=== PATIENT | female | born 1960 | race Caucasian/White ===

== ENCOUNTER 2017-09-30 22:45 | Emergency (ER) | payer BC ==
--- OUTSIDE RECORDS SUMMARY | 2017-09-30 22:59 | XMS REPORT ---
:1960 External Reference #:[id number] Author Organization [facility] Address [address] [place] [address] Phone [phone] Care Team Providers Name Role Phone Gurdeep Morrison Care Team Information Ammonium Hydroxide Operator Unavailable Gurdeep Morrison Primary Care Physician Unavailable Payers Type Date Identification Numbers Payment Provider Subscriber Health Maintenance Effective: Policy Number: Essential Plan Pro [employer]ino [employer] (O) 10/17/2016 [id number] [employer] Name: Essential [employer] 1 [address] [address] PayID: [id number] [place] [address] Problems Date Description Provider Status Onset: 12/24/2008 Allergic rhinitis Gurdeep Morrison M.D. Active Onset: 12/24/2008 Asthma without status asthmaticus Gurdeep Morrison M.D. Active Onset: 10/08/2011 Benign essential hypertension Gurdeep Morrison M.D. Active Onset: 10/08/2011 Hyperlipidemia Gurdeep Morrison M.D. Active Onset: 10/08/2011 Psoriasis Gurdeep Morrison M.D. Active Onset: 10/08/2011 Gastroesophageal reflux disease Gurdeep Morrison M.D. Active Onset: 10/08/2011 Cardiovascular symptoms Gurdeep Morrison M.D. Active Onset: 04/24/2012 Alopecia Becca Anthony M.D. Active Onset: 08/05/2012 Acute maxillary sinusitis Vasquez Keller M.D. Active Onset: 07/05/2014 Acute upper respiratory infection Gurdeep Morrison M.D. Active Onset: 07/05/2014 Acute bronchitis Gurdeep Morrison M.D. Active Onset: 09/14/2014 Contusion of chest Gurdeep Morrison M.D. Active Onset: 06/20/2015 Localized, primary osteoarthritis Gurdeep Morrison M.D. Active of the pelvic region and thigh Onset: 06/20/2015 Localized, primary osteoarthritis Gurdeep Morrison M.D. Active Onset: 10/25/2015 Epigastric pain Gurdeep Morrison M.D. Active Onset: 02/17/2016 Generalized anxiety disorder Gurdeep Morrison M.D. Active Onset: 04/10/2016 Mild intermittent asthma, Gurdeep Morrison M.D. Active uncomplicated Onset: 04/10/2016 Uterovaginal prolapse Gurdeep Morrison M.D. Active Onset: 05/04/2016 Eruption Gurdeep Morrison M.D. Active Family History Date Family Member(s) Problem(s) Comments Father Prostate Cancer Mother Arteriosclerosis Mother Hypertension Mother Hyperlipidemia First Brother Hypertension Second Brother Hypertension Social History Type Date Description Comments Cigarette Use Nonsmoker ETOH Use Denies alcohol use Smoking Patient is a former smoker Allergies, Adverse Reactions, Alerts Date Description Reaction Status Severity Comments 12/06/2006 Cipro active Headache 02/18/2008 Zithromax active Caused Kidney Pain 06/28/2011 Advair Diskus bronchial spasms active 12/23/2015 Seasonal active Medications Medication Date Status Form Strength Qnty SIG Indications Ordering Provider Tamiflu 09/07/ Active Capsules 75mg 10caps 1 by R50.9 Steffany romero Marylou, twice a KEEPER HELPER day Omeprazole 06/17/ Active Capsules 40mg 30caps 1 by Reilly Lebron every day Kym Meclizine HCL 03/22/ Active Tablets 12.5mg 30tabs 1 by H81.313 Dolly 2016 mouth 1 Ryan, 8h during KEE[employer] HELPER the day and 2-4po every night at bedtime Proair HFA 01/11/ Active Aerosol 108(90Base 17gm 2 puffs J30.2 Dolly 2016 ) mcg/Act every 4 Ryan, hours as KEEPER HELPER needed Citalopram 03/01/ Active Tablets 40mg 30tabs Take One F41.1 Vasquez Jimenez Hydrobromide 2016 Tablet By Lavern Keller M.D. Once Daily Montelukast 02/20/ Active Tablets 10mg 30tabs Take One J45.998 Gurdeep T. Sodium 2016 Tablet By Midura, Mouth M.D. Every Night At Bedtime as Needed J30.2 Clonazepam 02/17/2016 Active Tablets 0.5mg 30tabs 1 by mouth Gurdeep T. twice a day Midura, as needed M.D. for anxiety Ranitidine HCL 01/19/2016 Active Tablets 150mg 60tabs Take One K2 Gurdeep T. Tablet By 1. Midura, Mouth Twice 9 M.D. Daily For Stomach Clobetasol 07/14/2013 Active Cream 0.05% 60gm apply Gurdeep T. Propionate E sparingly Midura, to affected M.D. areas bid Ibuprofen Active Capsules 200mg prn Unknown Zyrtec Allergy Active Tablets 10mg 1 po qd Unknown Aspir-[address] 81mg 100tabs 1 po qd Unknown Saline Nasal Active Solution 0.65% 1 spray Unknown [place] each nostril twice a day as needed Multivitamins Active Capsules 1 by mouth Unknown every day Fish Oil Active Capsules 1 by mouth Unknown every day Nasonex 01/11/2017 - Hx Suspension 50mcg/A 17gm 2 J3 Dolly 04/05/2017 ct sprays/nost 0. Ryan, ril/d 2 [employer] HELPER Prednisone 01/11/2017 - Hx Tablets 10mg 30tabs 2 twice a J3 Dolly 03/22/2017 day x 3 0. Ryan, days then 2 2 KEE[employer] HELPER in the morning, 1 at night x 3 days then 1 twice a day x 3 days then 1 every day x 3 Nitrofurantoin 07/09/2016 - Hx Capsules 100mg 20caps 1 by mouth Gurdeep T. Monohyd Macro 03/22/2017 twice a day Midura, x 7 days M.D. Citalopram 02/15/2016 - Hx Tablets 10mg 60tabs 1-2 by F4 Gurdeep T. Hydrobromide 03/01/2016 mouth every 1. Midura, day 1 M.D. Sulfamethoxazole/ 01/20/2016 - Hx Tablets 800-160 20tabs 1 by mouth N3 Dolly Trimethoprim DS 02/17/2016 mg twice a day 9. Ryan, x 10d 0 [employer]EEPER HELPER Amoxicillin 12/23/2015 - Hx Tablets 875mg 20tabs 1 by mouth J2 Roula 01/02/2016 twice a day 0. Diaz, SPONGE FISHERMAN x 10 days 9 Omeprazole 10/25/2015 - Hx Capsules DR 40mg 30caps 1 by mouth R1 Gurdeep Valadez 02/17/2016 every in 0. [facility], the morning 13 M.D. for stomach Bactrim DS 02/01/2015 - Hx Tablets 800-160 10tabs 1 tab by 59 Anabella 06/20/2015 mg mouth twice 9. [place], a day 5 0 M.D. days Pyridium 02/01/2015 - Hx Tablets 100mg 20tabs 1 tab by 59 Anabella 06/20/2015 mouth every 9. [place], 6 hours as 0 M.D. needed Sulfamethoxazole/ 01/03/2015 - Hx Tablets 800-160 10tabs one tablet 59 Roula Trimethoprim DS 01/08/2015 mg twice a day 9. Diaz [employer]ER[employer] x 5 days 0 Amoxicillin/Clavu 09/18/2014 - Hx Tablets 875-125 20tabs 1 by mouth 46 Roula lanate Potassium 09/28/2014 mg twice a day 1. Diaz [employer]ER[employer] x 10 days 0 Amoxicillin/Clavu 07/05/2014 - Hx Tablets 875-125 20tabs 1 twice a 46 Gurdeep T. lanate Potassium 09/14/2014 mg day w/ 5. Midura, food. 9 M.D. Bactrim DS 05/24/2014 - Hx Tablets 800-160 6tabs 1 tab by Anabella 06/15/2014 mg mouth twice [place], a day 3 M.D. days Macrobid 05/18/2014 - Hx Capsules 100mg 10caps 1 tab by 78 Anabella 06/15/2014 mouth twice 8. [place], a day x 5 1 M.D. days Medrol Dosepak 01/19/2013 - Hx Tablets 4mg 1tabs as directed 49 Gurdeep Valadez 07/14/2013 3. Midura, 90 M.D. Sulfamethoxazole/ 12/16/2012 - Hx Tablets 800-160 10tabs 1 po bid x 59 Jonelle Trimethoprim DS 12/22/2012 mg 5 days 9. Catarina, 0 Afnp-Quinn Augmentin 08/05/2012 - Hx Tablets 500-125 20tabs 1 po bid Vasquez Jimenez 12/16/2012 mg With Yashira Keller M.D. Clobetasol 04/24/2012 - Hx Foam 0.05% 1bottle apply to Becca FarfanSage Propionate 07/14/2013 affected Gabrielle area twice , M.D. daily for up to 2 weeks Sulfamethoxazole/ 02/19/2012 - Hx Tablets 800-160 6tabs 1 po bid x 59 Jonelle Trimethoprim DS 04/24/2012 mg 3 days 9. Catarina, 0 Afnp-C Augmentin 12/11/2011 - Hx Tablets 500-125 20tabs 1 po bid Gurdeep T. 02/19/2012 mg Kym Morrison Singulair 12/07/2011 - Hx Tablets 10mg 30tabs 1 by mouth 49 Gurdeep T. 02/21/2016 every night 3. Midura, at bedtime 90 M.D. as needed Fluocinonide 10/08/2011 - Hx Solution 0.05% 60cc apply to Gurdeep TSage 04/24/2012 affected Midura, areas of M.D. the scalp qd prn Ranitidine HCL 10/08/2011 - Hx Tablets 150mg 60tabs take one K2 Roula 12/23/2015 tablet by 1. VICKEY Perales mouth twice 9 daily for stomach Amoxicillin 06/28/2011 - Hx Capsules 500mg 20caps 1 po bid x 49 Dolly 10/08/2011 10d 3. Ryan, 90 KEEPER HELPER SMZ-TMP DS 01/23/2011 - Hx Tablets 800-160 20tabs 1 bid Gurdeep T. 02/02/2011 mg Consuelo Morrison. Advair Mdi 01/20/2011 - Hx Aerosol 100-50m Sample 2 puffs bid 49 Dolly 02/02/2011 cg/Dose 3. Ryan, 90 KEEPER HELPER Maryjo 01/20/2011 - Hx Tablets 180mg 30tabs 1 po qd prn 49 Dolly 10/08/2011 allergies 3. Ryan, 90 KEEPER HELPER Singulair 01/20/2011 - Hx Tablets 10mg samples 1 po qd 49 Dolly 06/28/2011 3. Ryan, 90 KEEPER HELPER 477.9 Nasonex 01/20/2011 Hx Suspension 50mcg/Act sample 2 477.9 Dolly - sprays/nostril/day Ryan, 12/07/2011 KEEPER HELPER Proventil 01/20/2011 Hx Aerosol 108(90Base 1units 2 puffs every 4 Dolly HFA - ) mcg/Act hours as needed Ryan, 01/08/2017 KEEPER HELPER Amoxicill 09/11/2010 Hx Capsules 500mg 30caps 1 po tid x 10d 461.9 Dolly in - Ryan, 01/20/2011 KEEPER HELPER Diflucan 09/11/2010 Hx Tablets 150mg 2tabs 1 po times 1 day, 461.9 Dolly - may repeat in 5-7d Ryan, 01/20/2011 KEEPER HELPER Bactrim 03/17/2010 Hx Tablets 800-160mg 20tabs 1 bid as directed 599.0 Rio Gallegos, 03/27/2010 Kym Macrobid 03/15/2010 Hx Capsules 100mg 6caps 1 po bid 599.0 Rio Gallegos, 03/17/2010 Kym Celexa 11/29/2009 Hx Tablets 20mg 45tabs 1.5 q am Gurdeep Rory - Tamiko, 03/15/2010 Kym Flexeril 05/02/2009 Hx Tablets 10mg 30tabs 1-2 hs muscle spasm Gurdeep TSage Morrison, 11/29/2009 Kym Celebrex 05/02/2009 Hx Capsules 200mg Samples 1 po bid prn Neck Gurdeep Rory - Pain Tamiko, 06/03/2009 Kym Motrin 04/30/2009 Hx Tablets 400mg 60tabs use bid with meals Vasquez Jimenez - for headaches Breiman, 04/30/2009 Kym Celexa 01/17/2009 Hx Tablets 40mg 30tabs 1 po qd Gurdeep T. - Midura, 11/29/2009 Kym Proventil 12/24/2008 Hx Aerosol 108mcg/Act 1units 2 puffs q4h prn Gurdeep T. HFA - shortness of breath Midclaudy, 03/15/2010 Kym Celexa 12/02/2008 Hx Tablets 20mg 30tabs 1 po qd Gurdeep TSage - Maryaura, 01/17/2009 Kym Klonopin 12/02/2008 Hx Tablets 0.5mg 30tabs 1 po bid prn Gurdeep Malhotraura, 03/15/2010 Kym Amoxicill 11/24/2008 Hx Capsules 250mg 30caps 1 po tid x 10 days Vasquez Keller, 12/24/2008 Kym Bactrim 11/22/2008 Hx Tablets 800-160 20tabs 1 po bid Gurdeep Valadez DS - Tamiko, 11/24/2008 Kym Zantac 07/15/2008 Hx Tablets 150mg 60tabs 1 po bid prn Gurdeep Willis heartburn Tamiko, 03/15/2010 Kym Zyrtec 02/18/2008 Hx Tablets 10mg 1 PO qd [facility] 01/20/2011 [facility] Augmentin 12/06/2006 Hx Tablets 875mg 20tabs 1 PO bid With Food Gurdeep Morrison, 02/18/2008 Kym Cipro-XR 03/27/2006 Hx Tablets 500mg 7tabs 1 PO qd X 7D 380.10 Dolly - Ryan, 12/06/2006 KEEPER HELPER Nasalcrom 01/25/2006 Hx Inhaler 40mg/ml [facility] 03/15/2010 [facility] Prednison 01/25/2006 Hx 16 10mg 18units 3 Tabs X 3 Days; 2 Jonelle e - Tabs X 3 Days; 1 Catarina, 02/03/2006 Tab X 3 Days Afnp-C Clarinex 01/25/2006 Hx Samples 5mg 10units 1 PO qd Jonelle - Catarina, 02/18/2008 Afnp-C Advair 01/25/2006 Hx 100/50 2units One Inhalation Jonelle Discus - Twice Daily Catarina, 02/18/2008 Afnp-C Augmentin 12/25/2004 Hx 875mg 20units 1 po bid [facility] 01/25/2006 [facility] Amoxicill 03/18/2004 Hx Tablets 500mg 20tabs 1 bid Dolly Willis Ryan, 03/28/2004 KEEPER HELPER Proventil 12/15/2001 Hx Mdi 1units 2 Puffs Q4H prn For Vasquez Jimenez - Cough/ Wheezing Mariangelimazena, 01/25/2006 Kym Chavezpor 05/23/2000 Hx 1Bottle 4-5 gtts into r ear Jonelle in Otic - qid until clear Catarina, Susp 01/25/2006 Afnp-C Lidex 05/23/2000 Hx .O5% 30gm Apply bid Gurdeep T. Cream - Midura, 01/25/2006 Kym Claritin 01/19/2000 Hx 10mg 30units 1 qd prn Ollie Willis JanaSage [place], 03/28/2006 Kym Accular 01/19/2000 Hx 1Bottle Use as Directed Ollie Eye gtts - SSage Pola, 01/25/2006 1 QTT O.U. tid M.Napoleon Amoxicill 10/14/1998 Hx 250mg 30units 1 PO tid Ollie in Lazaro SSage Pola, 10/24/1998 Kym Keflex 08/01/1998 Hx 5Oomg 20units 1 PO bid Gurdeep T. - Midura, 10/14/1998 [place] Albuterol 12/22/1997 Hx 1units use as directed Elizabeth Inhaler - [facility] [place], 12/24/2008 2 puff qid Afnp-C Proventil Hx Aerosol 108(90Base 1units 2 puffs bid prn for 493.90 Dolly HFA - ) mcg/ac cough/wheeze Ryan, 12/24/2012 KEEPER HELPER Immunizations CPT Code Status Date Vaccine Lot # [id number] Given 02/26/2014 Tdap Tetanus, W Pertussis [id number] Vital Signs Date Vital Result Comment 09/07/2017 BP Systolic 142 mmHg BP Diastolic 78 mmHg Heart Rate 86 /min Body Temperature 100.2 F Respiratory Rate 16 /min O2 % BldC Oximetry 97 % Height 63.5 inches 5'3.50" measured 04/10/16 Weight 184.00 lb BMI (Body Mass Index) 32.1 kg/m2 04/05/2017 BP Systolic 134 mmHg BP Diastolic 64 mmHg Heart Rate 66 /min Body Temperature 97.0 F Respiratory Rate 16 /min Height 63.5 inches 5'3.50" measured 04/10/16 Weight 182.50 lb BMI (Body Mass Index) 31.8 kg/m2 03/22/2017 BP Systolic 120 mmHg BP Diastolic 80 mmHg Heart Rate 72 /min Body Temperature 98.6 F Respiratory Rate 18 /min Height 63.5 inches 5'3.50" measured 04/10/16 Weight 179.00 lb BMI (Body Mass Index) 31.2 kg/m2 01/11/2017 BP Systolic 124 mmHg BP Diastolic 82 mmHg Heart Rate 82 /min Body Temperature 99.4 F Respiratory Rate 18 /min O2 % BldC Oximetry 98 % Height 63.5 inches 5'3.50" measured 04/10/16 07/09/2016 BP Systolic 112 mmHg BP Diastolic 60 mmHg Heart Rate 68 /min Body Temperature 98.5 F Respiratory Rate 16 /min Height 63.5 inches 5'3.50" measured 04/10/16 Weight 167.00 lb BMI (Body Mass Index) 29.1 kg/m2 05/04/2016 BP Systolic 116 mmHg BP Diastolic 74 mmHg Heart Rate 72 /min Body Temperature 97.5 F Respiratory Rate 16 /min Height 63.5 inches 5'3.50" measured 04/10/16 Weight 161.38 lb BMI (Body Mass Index) 28.1 kg/m2 04/10/2016 BP Systolic 134 mmHg BP Diastolic 56 mmHg Heart Rate 72 /min Body Temperature 97.9 F Respiratory Rate 16 /min Height 63.5 inches 5'3.50" measured 04/10/16 Weight 164.38 lb BMI (Body Mass Index) 28.7 kg/m2 03/12/2016 BP Systolic 140 mmHg BP Diastolic 90 mmHg Heart Rate 88 /min Body Temperature 99.6 F Respiratory Rate 16 /min Height 64 inches 5'4" Weight 162.50 lb BMI (Body Mass Index) 27.9 kg/m2 02/17/2016 BP Systolic 128 mmHg BP Diastolic 60 mmHg Heart Rate 90 /min Body Temperature 97.2 F Respiratory Rate 16 /min Height 64 inches 5'4" Weight 166.25 lb BMI (Body Mass Index) 28.5 kg/m2 02/15/2016 BP Systolic 138 mmHg BP Diastolic 88 mmHg Heart Rate 72 /min Body Temperature 99.1 F Respiratory Rate 18 /min Height 64 inches 5'4" Weight 168.00 lb BMI (Body Mass Index) 28.8 kg/m2 01/26/2016 BP Systolic 126 mmHg BP Diastolic 62 mmHg Heart Rate 60 /min Body Temperature 98.7 F Respiratory Rate 14 /min Height 64 inches 5'4" Weight 166.06 lb BMI (Body Mass Index) 28.5 kg/m2 01/20/2016 BP Systolic 138 mmHg BP Diastolic 70 mmHg Heart Rate 74 /min Body Temperature 98.3 F Height 64 inches 5'4" Weight 167.00 lb BMI (Body Mass Index) 28.7 kg/m2 12/23/2015 BP Systolic 122 mmHg BP Diastolic 58 mmHg Heart Rate 70 /min Body Temperature 98.2 F Respiratory Rate 14 /min Height 64 inches 5'4" Weight 166.12 lb BMI (Body Mass Index) 28.5 kg/m2 10/25/2015 BP Systolic 112 mmHg BP Diastolic 64 mmHg Heart Rate 76 /min Body Temperature 99.1 F Respiratory Rate 16 /min Height 64 inches 5'4" Weight 161.12 lb BMI (Body Mass Index) 27.7 kg/m2 06/20/2015 BP Systolic 120 mmHg BP Diastolic 78 mmHg Heart Rate 64 /min Body Temperature 99.2 F Respiratory Rate 16 /min Height 64 inches 5'4" Weight 164.38 lb BMI (Body Mass Index) 28.2 kg/m2 02/01/2015 BP Systolic 118 mmHg BP Diastolic 60 mmHg Heart Rate 72 /min Body Temperature 98.3 F Respiratory Rate 16 /min Height 64 inches 5'4" Weight 182.00 lb BMI (Body Mass Index) 31.2 kg/m2 01/03/2015 BP Systolic 152 mmHg BP Diastolic 80 mmHg Heart Rate 78 /min Body Temperature 99.3 F Respiratory Rate 16 /min Weight 180.50 lb 12/13/2014 BP Systolic 130 mmHg BP Diastolic 70 mmHg Heart Rate 84 /min Body Temperature 98.9 F Respiratory Rate 16 /min Weight 181.25 lb 09/18/2014 BP Systolic 144 mmHg BP Diastolic 88 mmHg Heart Rate 80 /min Body Temperature 99.4 F Respiratory Rate 17 /min O2 % BldC Oximetry 98 % SOB 09/14/2014 BP Systolic 136 mmHg BP Diastolic 72 mmHg Heart Rate 72 /min Body Temperature 99.0 F Respiratory Rate 16 /min Height 64 inches 5'4" Weight 183.38 lb BMI (Body Mass Index) 31.5 kg/m2 07/05/2014 BP Systolic 146 mmHg BP Diastolic 80 mmHg Heart Rate 88 /min Body Temperature 99.4 F Respiratory Rate 16 /min Height 64 inches 5'4" Weight 176.00 lb BMI (Body Mass Index) 30.2 kg/m2 06/15/2014 BP Systolic 126 mmHg BP Diastolic 82 mmHg Heart Rate 88 /min Body Temperature 99.9 F Respiratory Rate 16 /min Height 64 inches 5'4" Weight 176.00 lb BMI (Body Mass Index) 30.2 kg/m2 05/18/2014 BP Systolic 120 mmHg BP Diastolic 60 mmHg Heart Rate 72 /min Body Temperature 98.6 F Respiratory Rate 16 /min Height 64 inches 5'4" Weight 176.00 lb BMI (Body Mass Index) 30.2 kg/m2 02/26/2014 BP Systolic 124 mmHg BP Diastolic 80 mmHg Heart Rate 68 /min Body Temperature 98.4 F Respiratory Rate 16 /min Height 64 inches 5'4" Weight 175.00 lb BMI (Body Mass Index) 30.0 kg/m2 07/14/2013 BP Systolic 126 mmHg BP Diastolic 72 mmHg Heart Rate 100 /min Body Temperature 98.9 F Height 66 inches 5'6" Weight 178.00 lb BMI (Body Mass Index) 28.7 kg/m2 01/19/2013 BP Systolic 138 mmHg BP Diastolic 84 mmHg Heart Rate 91 /min Body Temperature 99.1 F O2 % BldC Oximetry 99 % Height 66 inches 5'6" Weight 170.00 lb BMI (Body Mass Index) 27.4 kg/m2 12/16/2012 BP Systolic 110 mmHg BP Diastolic 78 mmHg Heart Rate 80 /min Body Temperature 98.7 F Height 66 inches 5'6" Weight 171.00 lb BMI (Body Mass Index) 27.6 kg/m2 08/05/2012 BP Systolic 140 mmHg BP Diastolic 62 mmHg Heart Rate 64 /min Body Temperature 98.5 F Respiratory Rate 16 /min Height 66 inches 5'6" Weight 177.00 lb BMI (Body Mass Index) 28.6 kg/m2 06/09/2012 BP Systolic 140 mmHg BP Diastolic 50 mmHg Heart Rate 72 /min Body Temperature 98.7 F Height 66 inches 5'6" Weight 168.00 lb BMI (Body Mass Index) 27.1 kg/m2 04/24/2012 BP Systolic 130 mmHg BP Diastolic 90 mmHg Heart Rate 68 /min Body Temperature 99.4 F Height 66 inches 5'6" Weight 168.00 lb BMI (Body Mass Index) 27.1 kg/m2 02/19/2012 BP Systolic 110 mmHg BP Diastolic 78 mmHg Heart Rate 60 /min Body Temperature 99.0 F Height 66 inches 5'6" Weight 178.00 lb BMI (Body Mass Index) 28.7 kg/m2 12/07/2011 BP Systolic 120 mmHg BP Diastolic 60 mmHg Heart Rate 78 /min Body Temperature 98.7 F Height 66 inches 5'6" Weight 182.00 lb BMI (Body Mass Index) 29.4 kg/m2 10/08/2011 BP Systolic 132 mmHg BP Diastolic 84 mmHg Heart Rate 88 /min Height 66 inches 5'6" Weight 188.00 lb BMI (Body Mass Index) 30.3 kg/m2 06/28/2011 BP Systolic 142 mmHg BP Diastolic 82 mmHg Heart Rate 76 /min Body Temperature 99.4 F Height 66 inches 5'6" Weight 187.00 lb BMI (Body Mass Index) 30.2 kg/m2 02/02/2011 BP Systolic 124 mmHg BP Diastolic 98 mmHg Heart Rate 72 /min Height 66 inches 5'6" Weight 180.00 lb BMI (Body Mass Index) 29.0 kg/m2 01/23/2011 BP Systolic 130 mmHg BP Diastolic 82 mmHg Heart Rate 72 /min Respiratory Rate 16 /min Height 66 inches 5'6" Weight 183.00 lb BMI (Body Mass Index) 29.5 kg/m2 01/20/2011 BP Systolic 144 mmHg BP Diastolic 60 mmHg Heart Rate 88 /min Body Temperature 98.4 F Height 66 inches 5'6" Weight 183.00 lb BMI (Body Mass Index) 29.5 kg/m2 09/11/2010 BP Systolic 140 mmHg BP Diastolic 80 mmHg Heart Rate 92 /min Body Temperature 99.4 F Respiratory Rate 16 /min O2 % BldC Oximetry 98 % Height 66 inches 5'6" Weight 183.00 lb BMI (Body Mass Index) 29.5 kg/m2 03/15/2010 BP Systolic 120 mmHg BP Diastolic 80 mmHg Heart Rate 80 /min Body Temperature 99.2 F Respiratory Rate 16 /min Height 66 inches 5'6" Weight 179.00 lb BMI (Body Mass Index) 28.9 kg/m2 11/29/2009 BP Systolic 130 mmHg BP Diastolic 88 mmHg Heart Rate 76 /min Body Temperature 98.7 F Respiratory Rate 16 /min Weight 174.00 lb 06/14/2009 BP Systolic 120 mmHg BP Diastolic 90 mmHg Heart Rate 68 /min Body Temperature 98.8 F Weight 160.00 lb 06/03/2009 BP Systolic 116 mmHg BP Diastolic 74 mmHg Heart Rate 78 /min Body Temperature 99.2 F Respiratory Rate 18 /min Height 66 inches 5'6" 05/02/2009 BP Systolic 142 mmHg BP Diastolic 78 mmHg Heart Rate 84 /min Body Temperature 98.1 F Height 66 inches 5'6" Weight 152.00 lb BMI (Body Mass Index) 24.5 kg/m2 03/14/2009 BP Systolic 128 mmHg BP Diastolic 74 mmHg Heart Rate 76 /min Respiratory Rate 18 /min Height 66 inches 5'6" Weight 149.00 lb BMI (Body Mass Index) 24.0 kg/m2 02/28/2009 BP Systolic 142 mmHg BP Diastolic 90 mmHg Heart Rate 80 /min Height 66 inches 5'6" Weight 147.00 lb BMI (Body Mass Index) 23.7 kg/m2 01/17/2009 BP Systolic 150 mmHg BP Diastolic 82 mmHg Heart Rate 78 /min Body Temperature 98.6 F Weight 136.00 lb 12/24/2008 BP Systolic 128 mmHg BP Diastolic 78 mmHg Heart Rate 72 /min Height 66 inches 5'6" Weight 138.00 lb BMI (Body Mass Index) 22.3 kg/m2 12/02/2008 BP Systolic 148 mmHg BP Diastolic 90 mmHg Heart Rate 90 /min Body Temperature 99.2 F Height 66 inches 5'6" Weight 139.00 lb BMI (Body Mass Index) 22.4 kg/m2 09/01/2008 BP Systolic 164 mmHg BP Diastolic 80 mmHg Heart Rate 108 /min Body Temperature 99.5 F Height 66 inches 5'6" Weight 141.00 lb BMI (Body Mass Index) 22.8 kg/m2 08/19/2008 BP Systolic 158 mmHg BP Diastolic 80 mmHg Heart Rate 84 /min Body Temperature 99.4 F Height 66 inches 5'6" Weight 146.00 lb BMI (Body Mass Index) 23.6 kg/m2 07/15/2008 BP Systolic 140 mmHg BP Diastolic 70 mmHg Heart Rate 88 /min Body Temperature 99.4 F Height 66 inches 5'6" Weight 148.00 lb BMI (Body Mass Index) 23.9 kg/m2 02/18/2008 BP Systolic 134 mmHg BP Diastolic 64 mmHg Heart Rate 78 /min Body Temperature 100.1 F Height 66 inches 5'6" Weight 137.00 lb BMI (Body Mass Index) 22.1 kg/m2 12/06/2006 BP Systolic 136 mmHg BP Diastolic 80 mmHg Body Temperature 100.5 F Height 66 inches 5'6" Weight 146.00 lb BMI (Body Mass Index) 23.6 kg/m2 10/11/2006 BP Systolic 132 mmHg BP Diastolic 80 mmHg Heart Rate 84 /min Body Temperature 98.8 F Weight 146.00 lb 03/27/2006 BP Systolic 140 mmHg BP Diastolic 80 mmHg Heart Rate 80 /min Body Temperature 99.2 F Weight 143.00 lb 02/04/2006 BP Systolic 116 mmHg BP Diastolic 70 mmHg Heart Rate 78 /min Weight 149.00 lb 01/25/2006 BP Systolic 162 mmHg BP Diastolic 94 mmHg Heart Rate 88 /min Body Temperature 99.7 F 12/25/2004 BP Systolic 110 mmHg BP Diastolic 70 mmHg Heart Rate 70 /min Weight 147.00 lb 03/17/2004 BP Systolic 110 mmHg BP Diastolic 70 mmHg Heart Rate 76 /min Body Temperature 99.0 F Weight 139.00 lb 01/27/2003 BP Systolic 120 mmHg BP Diastolic 88 mmHg Heart Rate 72 /min Weight 153.00 lb 06/05/2000 BP Systolic 112 mmHg BP Diastolic 80 mmHg Body Temperature 98.8 F Weight 145.00 lb 06/01/2000 Body Temperature 98.2 F 05/23/2000 BP Systolic 110 mmHg BP Diastolic 74 mmHg Heart Rate 78 /min Weight 145.00 lb 02/26/2000 BP Systolic 132 mmHg BP Diastolic 80 mmHg Body Temperature 97.5 F Weight 144.00 lb 02/21/2000 BP Systolic 118 mmHg BP Diastolic 80 mmHg Body Temperature 98.3 F Weight 142.00 lb 01/19/2000 BP Systolic 120 mmHg BP Diastolic 68 mmHg Body Temperature 98.0 F Weight 150.00 lb 06/14/1999 BP Systolic 136 mmHg BP Diastolic 78 mmHg Weight 150.00 lb 10/14/1998 Body Temperature 98.6 F 08/01/1998 Body Temperature 96.7 F Weight 145.00 lb 05/18/1997 BP Systolic 130 mmHg BP Diastolic 80 mmHg Body Temperature 98.9 F Height 65.50 inches 5'5.50" Weight 134.50 lb 134 lbs. 8 ozs. Up 7.5 LBS Results Test Date Test Result H/L Range Note Influenza A&B-a 09/07/2017 Influenza A neg Influenza B pos Ua - Micro ([facility]) 04/10/2016 Appearance cloudy Color yellow Glucose, Urine (a/[facility]/CTX) neg Bilirubin neg Ketones neg SP Grav 1.020 Blood trace-intact PH 5.5 Protein neg Urobil 0.2 Nitrite positive Leukocytes ([facility]) moderate Hyaline - /Lpf Granular - /Lpf WBC ([facility]) 40-50 RBC 1-2 Mucus ([facility]) - /Lpf Epith few /Lpf Bacteria 4+ /Hpf Amorphous ([facility]) - /Lpf Crystals, Fluid ([facility]/CTX) - Z#Comments - CBC Electronic (a) 04/10/2016 WBC 6.7 3.6-9.6 RBC 4.44 3.90-5.70 Hemoglobin ([facility]) 13.4 g/dL 12.1 - 17.2 Hematocrit ([facility]/CTX) 40.6 % 36.1 - 50.3 Platelets 248 10^3/ul 150-400 Lymph% 34.0 % 17.0-48.0 Mixed% 5.1 Neutrophils % 60.9 Mean Corpuscular Vol 91 82.2-97.4 Mean Corpuscular Hemoglobin 30.1 27.6-33.3 Mean Corpuscular Hemo Concen 32.9 32.0-36.0 RDW 13.9 High 11.6-13.7 Mean Platelet Volume 7.7 5.5-11.0 Comprehensive Metabolic Prof 04/10/2016 Sodium 139 mEq/L 134-149 Potassium 4.2 mEq/L 3.6-5.5 Chloride 105 mEq/L 94-112 Carbon Dioxide 26 mEq/L 21-32 Glucose 95 mg/dL 70-105 BUN 16 mg/dL 6-26 Creatinine 0.8 mg/dL 0.6-1.4 BUN/Creat Ratio 20.0 CALC 8.0-36.0 Calcium 9.6 mg/dL 8.6-10.2 Total Protein 7.2 g/dL 6.4-8.3 Albumin 4.4 g/dL 3.8-5.5 Globulin 2.8 g/dL 2.0-4.8 A/G Ratio 1.6 CALC 0.6-2.3 Alk. Phosphatase 48 U/L 30-110 Alt (SGPT) 15 U/L 7-35 Ast (Sgot) 21 U/L 5-34 Total Bilirubin 0.2 mg/dL 0.2-1.3 GFR Non- >60 ml/min/1.73m^ >=60 GFR >60 ml/min/1.73m^ >=60 Lipid Profile 04/10/2016 Cholesterol 250 mg/dL High 120-200 Triglycerides 161 mg/dL 30-200 HDL Cholesterol 54 mg/dL 30-85 LDL (Calculated) 164 CALC High 0-129 VLDL Cholesterol 32 mg/dL 0-50 HDL Risk Factor 4.6 CALC High 0.0-4.4 Ua - Micro ([facility]) 01/20/2016 Appearance cloudy Color yellow Glucose, Urine (Fma/CMC/CTX) neg Bilirubin neg Ketones neg SP Grav 1.025 Blood moderate PH 5.5 Protein ssa trace Urobil 0.2 Nitrite neg Leukocytes (Fma/CMC/Centrex) large Hyaline - /Lpf Granular - /Lpf WBC (a,Centrex) >100 RBC >100 Mucus - /Lpf Epith few /Lpf Bacteria 4+ /Hpf Amorphous - /Lpf Crystals, Fluid (Fma/CMC/CTX) - Z#Comments - Lipid Profile 06/20/2015 Cholesterol 265 mg/dL High 120-200 Triglycerides 130 mg/dL 30-200 HDL Cholesterol 58 mg/dL 30-85 LDL (Calculated) 181 CALC High 0-129 VLDL Cholesterol 26 mg/dL 0-50 HDL Risk Factor 4.6 CALC High 0.0-4.4 Laboratory test finding 02/01/2015 Urine Culture And SEE RESULT BELOW 1 Sensitivities Ua - Micro (a) 02/01/2015 Appearance cloudy Color yellow Glucose, Urine (Fma/CMC/CTX) - Bilirubin - Ketones trace SP Grav 1.025 Blood moderate PH 6.5 Protein ssa 1+ Urobil 0.2 Nitrite - Leukocytes (Fma/CMC/Centrex) small Hyaline - /Lpf Granular - /Lpf WBC (Fma,Centrex) 30-35 few clumpd RBC 10-14 Mucus small amount /Lpf Epith few /Lpf Bacteria 1+ /Hpf Amorphous - /Lpf Crystals, Fluid (Fma/CMC/CTX) - Z#Comments - Ua - Micro ([facility]) 01/03/2015 Appearance CLEAR Color YELLOW Glucose, Urine (Fma/CMC/CTX) NEG Bilirubin NEG Ketones NEG SP Grav 1.025 Blood TRACE-LYSED PH 5.5 Protein NEG Urobil 0.2 Nitrite NEG Leukocytes (Fma/CMC/Centrex) MOD Hyaline - /Lpf Granular - /Lpf WBC (a,Centrex) 20-25 RBC 3-5 Mucus - /Lpf Epith RARE /Lpf Bacteria 2+ /Hpf Amorphous - /Lpf Crystals, Fluid (a/CMC/CTX) - Urine Culture And Sensitivities 01/03/2015 Urine Culture (SEE NOTE) 2, 3 Comprehensive Metabolic Prof 12/13/2014 Sodium 138 mEq/L 134-149 Potassium 4.6 mEq/L 3.6-5.5 Chloride 102 mEq/L 94-112 Carbon Dioxide 30 mEq/L 21-32 Glucose 99 mg/dL 70-105 BUN 14 mg/dL 6-26 Creatinine 0.6 mg/dL 0.6-1.4 BUN/Creat Ratio 23.3 CALC 8.0-36.0 Calcium 9.3 mg/dL 8.6-10.2 Total Protein 7.2 g/dL 6.4-8.3 Albumin 4.4 g/dL 3.8-5.5 Globulin 2.8 g/dL 2.0-4.8 A/G Ratio 1.6 CALC 0.6-2.3 Alk. Phosphatase 53 U/L 30-110 Alt (SGPT) 26 U/L 7-35 Ast (Sgot) 24 U/L 5-34 Total Bilirubin 0.3 mg/dL 0.2-1.3 Lipid Profile 12/13/2014 Cholesterol 254 mg/dL High 120-200 Triglycerides 157 mg/dL 30-200 HDL Cholesterol 49 mg/dL 30-85 LDL (Calculated) 174 CALC High 0-129 VLDL Cholesterol 31 mg/dL 0-50 HDL Risk Factor 5.2 CALC High 0.0-4.4 Ua - Micro (a) 05/18/2014 Appearance cloudy Color yellow Glucose neg Bilirubin neg Ketones neg SP Grav 1.020 Blood trace-lysed PH 5.5 Protein neg Urobil 0.2 Nitrite neg Leukocytes (a/[facility]/Centrex) small Hyaline - /Lpf Granular - /Lpf WBC ([facility],Centrex) 20-30some clump RBC 1-2 Mucus - /Lpf Epith occass /Lpf Bacteria 1+ /Hpf Amorphous - /Lpf Crystals, Fluid (Fma/CMC/CTX) - Z#Comments - Complete Blood Count 03/03/2014 WBC 4.9 x10^3/UL 3.6-9.6 RBC 4.60 x10^6/UL 3.90-5.70 HGB 13.5 g/dL 12.1-17.2 HCT 41 % 36-50 MCV 89.0 fL 82.2-97.4 MCH 29.4 pg 27.6-33.3 MCHC 32.8 g/dL Low 33.0-35.5 RDW 12.2 % 11.6-13.7 PLT 320 x10^3/UL 150-400 MPV 8.4 fL 7.4-10.4 Gran # 2.7 x10^3/UL 1.5-7.2 Lymph# 2.0 x10^3/UL 0.7-4.9 [place]# 0.2 x10^3/UL 0.1-0.9 Gran % 53.2 % 42.2-75.2 Lymph % 40.9 % 20.5-51.1 [place]% 5.9 % 1.7-9.3 Comprehensive Metabolic Prof 03/03/2014 Sodium 137 mEq/L 134-149 Potassium 4.2 mEq/L 3.6-5.5 Chloride 102 mEq/L 94-112 Carbon Dioxide 27 mEq/L 21-32 Glucose 94 mg/dL 70-105 BUN 15 mg/dL 6-26 Creatinine 0.8 mg/dL 0.6-1.4 BUN/Creat Ratio 18.8 CALC 8.0-36.0 Calcium 9.3 mg/dL 8.6-10.2 Total Protein 8.0 g/dL 6.3-8.1 Albumin 4.7 g/dL 3.8-5.5 Globulin 3.3 g/dL 2.0-4.8 A/G Ratio 1.4 CALC 0.6-2.3 Alk. Phosphatase 58 U/L 30-110 Alt (SGPT) 26 U/L 7-35 Ast (Sgot) 20 U/L 5-34 Total Bilirubin 0.4 mg/dL 0.2-1.3 Lipid Profile 03/03/2014 Cholesterol 306 mg/dL High 120-200 Triglycerides 94 mg/dL 30-200 HDL Cholesterol 57 mg/dL 30-85 LDL (Calculated) 230 CALC High 0-129 VLDL Cholesterol 19 mg/dL 0-50 HDL Risk Factor 5.4 CALC High 0.0-4.4 Ua - Micro (Fma) 02/26/2014 Appearance CLEAR Color YELLOW Glucose NEG Bilirubin NEG Ketones NEG SP Grav 1.025 Blood NEG PH 6.0 Protein NEG Urobil 0.2 Nitrite NEG Leukocytes (a/CMC/Centrex) NEG Hyaline - /Lpf Granular - /Lpf WBC (a,Centrex) 2-3 RBC 0-2 Mucus - /Lpf Epith FEW /Lpf Bacteria TRACE /Hpf Amorphous - /Lpf Crystals, Fluid (a/CMC/CTX) - Z#Comments - Ua - Micro ([facility]) 12/16/2012 Appearance clear Color yellow Glucose neg Bilirubin neg Ketones neg SP Grav 1.025 Blood trace-intact PH 5.5 Protein neg Urobil 0.2 Nitrite neg Leukocytes (a/CMC/Centrex) small Hyaline - /Lpf Granular - /Lpf WBC (a,Centrex) 20-30 RBC 1-2 Mucus - /Lpf Epith rare /Lpf Bacteria +1 /Hpf Amorphous - /Lpf Crystals, Fluid (a/CMC/CTX) - Z#Comments - Ua - Micro ([facility]) 02/19/2012 Appearance CLEAR Color YELLOW Glucose NEG Bilirubin NEG Ketones NEG SP Grav 1.010 Blood TRACE-LYSED PH 6.0 Protein NEG Urobil 0.2 Nitrite NEG Leukocytes (a/CMC/Centrex) NEG Hyaline - /Lpf Granular - /Lpf WBC ([facility]) 5-7 RBC - Mucus - /Lpf Epith RARE /Lpf Bacteria TRACE /Hpf Amorphous - /Lpf Crystals, Fluid (a/CMC/CTX) - Z#Comments - Laboratory test finding 02/19/2012 Urine Culture Escherichia coli 4 Comprehensive Metabolic Prof 10/19/2011 Albumin 5.0 g/dL 3.8-5.5 Alk. Phos. 46 U/L 30-110 Alt (SGPT) 20 U/L 10-40 Ast (Sgot) 23 U/L 5-34 BUN 15 mg/dL 6-26 Calcium 9.8 mg/dL 8.6-10.2 Chloride 99 mEq/L 94-112 Creatinine 0.8 mg/dL 0.6-1.4 Carbon Dioxide 23 mEq/L 21-32 Glucose 101 mg/dL 70-105 Sodium 134 mEq/L 134-149 Total Bilirubin 0.4 mg/dL 0.2-1.3 Total Protein 7.6 g/dL 6.3-8.1 Potassium 4.3 mEq/L 3.6-5.5 Globulin 2.5 g/dL 2.0-4.8 A/G Ratio 2.0 Calc 0.6-2.2 BUN/Creat Ratio 19.0 Calc 8.0-36.0 Lipid Profile 10/19/2011 Cholesterol 260 mg/dL High 120-200 HDL 50 mg/dL 30-85 Triglycerides 125 mg/dL 30-200 HDL Risk Factor 5.2 CALC High 0.0-4.0 LDL (Calculated) 185 CALC High 0-129 VLDL (Calculated) 25 mg/dL 0-50 Ua - Non Micro (Fma) 10/08/2011 Appearance CLEAR Color YELLOW Glucose, Urine (Fma/CMC/CTX) NEG Bilirubin NEG Ketones NEG SP Grav 1.015 Blood MENSES PH 7.0 Protein NEG Urobil 0.2 Nitrite NEG Leukocytes (Fma/CMC/Centrex) NEG Ua - Micro (Fma) 01/23/2011 Appearance cloudy Color yellow Glucose - Bilirubin - Ketones - SP Grav >1.030 Blood moderate PH 5.5 Protein trace (ssa) Urobil 0.2 Nitrite - Leukocytes (Fma/CMC/Centrex) small Hyaline - /Lpf Granular - /Lpf WBC (Fma,Centrex) 20-30 RBC 15-20 Mucus - /Lpf Epith few /Lpf Bacteria 1+ /Hpf Amorphous - /Lpf Crystals, Fluid (Fma/CMC/CTX) - Laboratory test finding 03/15/2010 Urine Culture Proteus mirabili <SEE 5 NOTE> Urine (Fma) 03/15/2010 SP Grav 1.025 Urine, (Fma/CMC/CTX) NEG Ua - Micro (Fma) 03/15/2010 Appearance CLEAR Color YELLOW Glucose NEG Bilirubin NEG Ketones NEG SP Grav 1.025 Blood MODERATE PH 5.0 Protein NEG Urobil 0.2 Nitrite NEG Leukocytes (Fma/CMC/Centrex) SMALL Hyaline - /Lpf Granular - /Lpf WBC (Fma,Centrex) 25-30 RBC 20-25 Mucus - /Lpf Epith OCC /Lpf Bacteria 1+ /Hpf Amorphous - /Lpf Crystals, Fluid (Fma/CMC/CTX) - Z#Comments - Laboratory test finding 10/18/2008 [facility] Labs CLOTEST See Image Report Laboratory test finding 08/19/2008 Hpylori Total Qual NEGATIVE (Fma) Comprehensive Metabolic 08/19/2008 Albumin 4.4 g/dL 3.8-5.5 Prof Alk. Phos. 41 U/L 30-110 Alt (SGPT) 11 U/L 7-35 Ast (Sgot) 20 U/L 5-34 BUN 18 mg/dL 6-26 Calcium 9.3 mg/dL 8.6-10.2 Chloride 98 mEq/L 94-112 Creatinine 1.1 mg/dL 0.6-1.4 Carbon Dioxide 26 mEq/L 21-32 Glucose 105 mg/dL 70-105 Sodium 135 mEq/L 134-149 Total Bilirubin 0.2 mg/dL 0.2-1.3 Total Protein 7.5 g/dL 6.3-8.1 Potassium 4.8 mEq/L 3.6-5.5 Globulin 3.1 g/dL 2.0-4.8 A/G Ratio 1.4 Calc 0.6-2.2 BUN/Creat Ratio 16.2 Calc 8.0-36.0 Laboratory test finding 12/06/2006 Throat - Beta Strep Fma NEGATIVE Comp+ And Lipid (Fma) 06/22/1999 Alkaline Phosphatase 41 U/L 40 - 150 Ast (Sgot) 13 U/L 10.0-40.0 Alt (SGPT) 13 U/L 10.0-35.0 BUN 18 mg/dL 7.0 - 22.0 Creatinine 0.8 mg/dL 0.70 - 1.20 Glucose 90 mg/dL 70 - 105 Cholesterol 259 mg/dL High < 200 Triglyceride 42 mg/dL 40 - 160 HDL-Chol 73 mg/dL > 35 Albumin 4.6 GM/DL 3.50 - 5.50 Protein 7.3 g/dL 6.4-8.3 Calcium 9.4 mg/dL 9.10 - 10.60 Bilirubin, Total 0.4 mg/dL 0.2-1.0 Co2 22.6 22.0 - 30.0 Sodium 137 mEq/L 136.0 - 145.0 Potassium 4.7 mEq/L 3.5 - 5.1 Chloride 104 mEq/L 98.0 - 107.0 LDL-Calculated 178 CBC With Diff (Fma) 06/22/1999 WBC 5.1 /Hpf 3.6 - 9.6 Lymphocytes 40.3 % 20.5 - 51.1 Monocytes 5.5 % 1.7 - 9.3 Granulocytes 54.2 % 42.2 - 75.2 Lymphocytes 2.1 10^3/uL 0.7 - 4.9 Monocytes 0.3 10^3/uL 0.1 - 0.9 Granulocytes 2.8 10^3/uL 1.5 - 7.2 RBC 4.58 /Hpf 3.90 - 5.70 Hemoglobin 14.5 g/dL 12.1 - 17.2 Hematocrit 43.1 % 36.1 - 50.3 Mean Corpuscular Vol 94.2 fl 82.2 - 97.4 Mean Corpuscular Hemaglobin 31.6 pg 27.6 - 33.3 Mean Corpuscular Hemo Concen 33.6 g/dL 33.0 - 34.8 RDW 12.2 % 11.6 - 13.7 Platelets 234 10^3/ul 202 - 386 Mean Platelet Volume 8.7 fl 7.4 - 10.4 Laboratory test finding 06/22/1999 Sed Rate 1 1 SEE RESULT BELOW Name: CHELSYPRO L : [address]: Anabella Velasco MD Acct: [id number] Unit: [id number] AGE: 54 Location: [facility] Re02/01/15 SEX: F Status: REG REF SPEC: [id number] JOSIE: 02/01/15-1645 VANESSA CROWE: Anabella Velasco MD REQ: [id number] RECD: 02/01/15 STATUS: COMP _ SOURCE: URINE SPDESC: ORDERED: Urine Culture COMMENTS: 1 bortex container Procedure Result Verified Site Urine Culture Final 02/03/15- 1102 ML Organism 1 STREP GROUP B [place] Count 75-100,000 (Many) CFU/ML Susceptibility testing of penicillins and other B-lactams approved by FDA for treatment of Streptococcus pyogenes (Group A Strep) and Streptococcus agalactiae (Group B Strep) is not necessary for clinical purposes and need not be done routinely, since as with vancomycin, resistant strains have not been recognized. (CLSI D451-Y64;p.66) Positive isolates will be saved for one week. Please call the Microbiology Laboratory if further susceptibility testing is needed. * ML - MAIN LAB ([facility]) . END OF REPORT * ML=Testing performed at Main Lab DEPARTMENT OF PATHOLOGY, [address] [place] [address] Narayan Wiggins M.D. Director [facility] # [id number] 2 1BORITEX 3 RUN DATE: 01/05/15 [facility] LAB LIVE PAGE 1 RUN TIME: [address] [place] [id number] Specimen Inquiry Name: PRO VALENTINO : [address]: Roula Perales [facility] Acct: [id number] Unit: [id number] AGE: 54 Location: [facility] Re01/03/15 SEX: F Status: REG REF SPEC: [id number] JOSIE: 01/03/15-[address]: Roula Perales [facility] REQ: [id number] RECD: 01/03/15 STATUS: COMP _ SOURCE: URINE SPDESC: ORDERED: Urine Culture COMMENTS: 1BORITEX QUERIES: Provider Requisition # [id number] Procedure Result Verified Site Urine Culture Final 01/05/15- 927 ML Organism 1 ENTEROBACTER AEROGENES [place] Count >100,000 (Many) CFU/ML 1. ENTEROBACTER AEROGENES M.I.C. RX --------- ------ Cefazolin >=64 R Cefepime <=1 S Ceftriaxone <=1 S Ciprofloxacin <=0.25 S Gentamicin <=1 S Levofloxacin <=0.12 S Meropenem <=0.25 S Nitrofurantoin 128 R Tetracycline <=1 S Pipercillin/Tazobactam <=4 S Trimethoprim/Sulfamethoxazole <=20 S Amoxicillin/Clavulanic Acid >=32 R Aztreonam <=1 S Contact the Microbiology Department for any additional antibiotic reporting. * ML - MAIN LAB ([facility]) . END OF REPORT * ML=Testing performed at Main Lab DEPARTMENT OF PATHOLOGY, [address] [place] [address] Narayan Wiggins M.D. Director [facility] # [id number] 4 Escherichia coli >100,000 col/ml URINE CULTURE organism 1 Escherichia coli >100,000 col/ml Meropenem <=0.25 Susceptible Ertapenem <=0.5 Susceptible Amikacin <=2 Susceptible Amoxicillin/CA <=2 Susceptible Ampicillin <=2 Susceptible Aztreonam <=1 Susceptible Cefazolin <=4 Susceptible Ciprofloxacin <=0.25 Susceptible Gentamicin <=1 Susceptible Imipenem <=1 Susceptible Levofloxacin <=0.12 Susceptible Nitrofurantoin <=16 Susceptible Tetracycline <=1 Susceptible Trimethoprim/Sulfa <=20 Susceptible 5 Proteus mirabilis >100,000 col/ml URINE CULTURE organism 1 Proteus mirabilis >100,000 col/ml Ertapenem <=0.5 mcg/mL Susceptible Amikacin <=2 mcg/mL Susceptible Amoxicillin/CA <=2 mcg/mL Susceptible Ampicillin <=2 mcg/mL Susceptible Aztreonam <=1 mcg/mL Susceptible Cefazolin <=4 mcg/mL Susceptible Ciprofloxacin <=0.25 mcg/mL Susceptible Gentamicin <=1 mcg/mL Susceptible Levofloxacin <=0.12 mcg/mL Susceptible Nitrofurantoin 128 mcg/mL Resistant Piperacillin/tazobactam <=4 mcg/mL Susceptible Tetracycline >=16 mcg/mL Resistant Trimethoprim/Sulfa <=20 mcg/mL Susceptible Procedures Date CPT Code Description Status 06/18/2017 Mammogram Completed 07/26/2016 Colonoscopy Completed 09/18/2014 86881 Pulse Oximetry Completed 01/19/2013 35372 Pulse Oximetry Completed 06/28/2011 18984 Nebulizer Treatment Completed 05/23/2000 88659 Remove Impacted Cerumen Completed Encounters Type Date Location Provider CPT E/M Dx Office Visit 04/05/2017 3:00p Main Office Gurdeep Morrison M.D. 10795 F41.1 K21.9 J30.2 H81.313 Office Visit 03/22/2017 1:45p Main Office JERAMY Lunsford 21515 H81.313 Office Visit 01/11/2017 3:30p Main Office JERAMY [place] 15535 J30.2 Office Visit 07/09/2016 4:40p Main Office Gurdeep Morrison M.D. 06104 F41.1 K21.9 R82.71 Office Visit 05/04/2016 4:40p Main Office Gurdeep Morrison M.D. 26753 F41.1 R21 Office Visit 04/10/2016 3:20p Main Office Gurdeep Morrison M.D. 52259 Z00.00 F41.1 K21.9 E78.4 J30.2 L40.9 J45.20 N81.4 R82.99 Office Visit 03/12/2016 1:10p Main Office Gurdeep Morrison M.D. 42670 F41.1 Office Visit 02/17/2016 2:20p Main Office Gurdeep Morrison M.D. 17650 F41.1 Office Visit 02/15/2016 3:30p [facility] Office Jonelle Elmore, Maria Elena-C 99935 F41.1 Office Visit 01/26/2016 3:30p [place] [address] S00.511A S00.571A Y92.013 Y99.8 Office Visit 01/20/2016 2:45p Main Office Dolly Drummondrer, JERAMY 25829 N39.0 Office Visit 12/23/2015 10:45a [place] [address] J20.9 Office Visit 10/25/2015 2:00p Main Office Gurdeep Morrison M.D. 81733 R10.13 K21.9 Office Visit 06/20/2015 4:00p Main Office Gurdeep Morrison M.D. 43025 E78.5 J30.9 K21.9 L40.9 M16.0 M17.0 Office Visit 02/01/2015 3:40p Main Office Anabella Velasco M.D. 57805 599.0 Office Visit 01/03/2015 3:15p [place] [address] 599.0 Office Visit 12/13/2014 8:40a Main Office Gurdeep Morrison M.D. 67038 272.4 477.9 530.81 696.1 Office Visit 09/18/2014 10:00a [place] [address] 461.0 Office Visit 09/14/2014 4:00p Main Office Gurdeep Morrison M.D. 33216 922.1 Office Visit 07/05/2014 1:10p Main Office Gurdeep Morrison M.D. 39413 465.9 493.90 466.0 Office Visit 06/15/2014 5:40p Main Office Gurdeep Morrison M.D. 64720 272.4 Office Visit 05/18/2014 11:30a Main Office Anabella Velasco M.D. 15518 788.1 Office Visit 02/26/2014 3:20p Main Office Gurdeep Morrison M.D. 17405 V70.0 493.90 477.9 696.1 530.81 272.4 V06.1 V06.5 791.7 Office Visit 07/14/2013 3:15p Main Office Maria Elena Romero-C 62410 696.1 Office Visit 01/19/2013 3:10p Main Office Gurdeep Morrison M.D. 02522 493.90 477.9 Office Visit 12/16/2012 11:45a Main Office Jonelle Elmore Afnp-C 64698 599.0 Office Visit 08/05/2012 4:10p [facility] Office Vasquez Keller M.D. 34433 461.0 Office Visit 06/09/2012 6:20p Main Office Gurdeep Morrison M.D. 63375 401.1 696.1 530.81 477.9 Office Visit 04/24/2012 4:30p Main Office Becca Anthony M.D. 54711 696.1 704.00 Office Visit 02/19/2012 3:45p Main Office Jonelle Elmore Afnp-C 37710 599.0 Office Visit 12/07/2011 4:20p Main Office Gurdeep Morrison M.D. 91638 401.1 477.9 493.90 Office Visit 10/08/2011 3:20p Main Office Gurdeep Morrison M.D. 57335 V70.0 401.1 272.4 696.1 530.81 477.9 493.90 785.9 Office Visit 06/28/2011 3:15p [facility] Office Dolly Davis, [facility] 09002 493.90 Office Visit 02/02/2011 3:30p Main Office Dolly Davis, [facility] 38640 493.90 Office Visit 01/23/2011 3:10p Main Office Gurdeep Morrison M.D. 27687 599.0 493.90 477.9 Office Visit 01/20/2011 10:00a Main Office Dolly Davis, [facility] 59085 493.90 477.9 Office Visit 09/11/2010 1:45p [facility] Office Dolly Davis, [facility] 84326 461.9 Office Visit 03/15/2010 3:30p [facility] Office Rio Gallegos M.D. 55649 599.0 Office Visit 11/29/2009 4:40p Main Office Gurdeep Morrison M.D. 07892 300.00 535.00 493.90 477.9 Office Visit 06/14/2009 4:15p [facility] Office Elizabeth [facility] 73314 112.1 Office Visit 06/03/2009 1:20p Main Office Gurdeep Morrison M.D. 33577 300.00 723.1 Office Visit 05/02/2009 9:40a Main Office Gurdeep Morrison M.D. 20787 723.1 784.0 Office Visit 03/14/2009 4:20p Main Office Gurdeep Morrison M.D. 89540 300.00 214.9 Office Visit 02/28/2009 8:50a Main Office Gurdeep Morrison M.D. 79764 300.00 300.4 477.9 Office Visit 01/17/2009 9:50a Main Office Gurdeep Morrison M.D. 64931 300.00 300.4 477.9 Office Visit 12/24/2008 3:00p Main Office Gurdeep Morrison M.D. 50362 300.4 300.00 477.9 493.90 Office Visit 12/02/2008 2:10p [facility] Office Gurdeep Morrison M.D. 67068 300.4 300.00 Office Visit 09/01/2008 3:10p Main Office Gurdeep Morrison M.D. 00357 789.06 401.1 Office Visit 08/19/2008 3:00p [facility] Office Gurdeep Morrison M.D. 76610 789.06 401.1 Office Visit 07/15/2008 2:40p [facility] Office Gurdeep Morrison M.D. 66510 535.00 Office Visit 02/18/2008 4:10p Main Office Gurdeep Morrison M.D. 36777 785.1 272.4 Office Visit 12/06/2006 11:10a Main Office Gurdeep Morrison M.D. 98875 465.9 462 493.92 Office Visit 10/11/2006 9:10a Main Office Gurdeep Morrison M.D. 42400 719.41 786.59 Office Visit 03/27/2006 4:15p Main Office JERAMY Lunsford 32069 380.10 Office Visit 02/04/2006 12:10p Main Office Gurdeep Morrison M.D. 11853 843.9 Office Visit 01/25/2006 2:00p [facility] Office Rodger Romero 81086 493.92 477.9 Office Visit 12/25/2004 2:15p Main Office JERAMY [place]uns[place] 23886 486 Office Visit 03/17/2004 1:15p [facility] Office Rodger Romero 05867 380.10 Office Visit 01/27/2003 4:00p Main Office Rodger Holbrook 49856 493.90 Office Visit 06/05/2000 1:45p Main Office Rodger Holbrook 34629 Office Visit 06/01/2000 10:10a Main Office Ollie Escalona M.D. 74590 Office Visit 05/23/2000 3:00p [facility] Office Gurdeep Morrison M.D. 81609 Plan of Care Future Appointment(s):10/07/2017 4:00 pm - Gurdeep Morrison M.D. at Main Abfkam7409/07/2017 - Steffany Hickman, DIEGOPJ02.9 Acute pharyngitis, bsoldqkphtsU16.9 Fever, unspecifiedNew Medication:Tamiflu 75 mgComments: POSITIVE for flu B; start tamiflu today, others in your household need to be treated as wellLay low,rest, push fluids, keep taking your inhalerIf you cannot manage a fever with Tylenol or ibuprofen athome, you need to be in the hospitalIf your breathing worsens, or your inhaler stops helping with symptoms, call [address] [place] [address] if condition changes/worsens in any wayAllComments:~B_~U_ Medication Management~b_~u_ Patient Understands medications he 's taking? Yes No Are there Barriers to Adherence? Yes No Has the patient been asked about herbal supplements and therapies, and OTC meds? Yes No
[2017-09-30] MEDS ORDERED: Morphine INJ* 4 MG/ML 1 ML CARPUJECT IV ONE (23:19)
[2017-09-30] MEDS ORDERED: diPHENhydraMINE IV* 50 MG/ML 1 ml VIAL (BENADRYL) IV ONE (23:19)
[2017-09-30] MEDS ORDERED: Metoclopramide IV* 5 MG/ML 2 ML VIAL IV ONE (23:19)
[2017-09-30] MEDS ORDERED: NS 0.9% 1000 ML* 1,000 ML IV ONE (23:19)
[2017-10-01 00:38] LABS: ABS Basophils 0 10^3/ul (0-0.2); ABS Eosinophils 0.2 10^3/ul (0-0.6); ABS Lymphocytes 1.6 10^3/ul (1.0-4.8); ABS Monocytes 0.6 10^3/ul (0-0.8); ABS Neutrophils 5.2 10^3/ul (1.5-7.7); ABS Nucleated RBC 0 10^3/ul; Eosinophil % 2.4 % (0-6); Hematocrit 37 % (35-47); Hemoglobin 12.2 g/dl (12.0-16.0); Lymphocyte % 21.2 % (25-47); Mean Corpuscular HGB Conc 33 g/dl (31-36); Mean Corpuscular Hemoglobin 29 pg (27-31); Mean Corpuscular Volume 89 fL (80-97); Mean Platelet Volume 9 um3 (7.4-10.4); Nucleated Red Blood Cells % 0; Platelet Count 267 10^3/ul (150-450); Red Blood Count 4.22 10^6/ul (4.0-5.4); Red Cell Distribution Width 14 % (10.5-15); White Blood Count 7.7 10^3/ul (3.5-10.8)
[2017-10-01 00:41] LABS: INR 0.91 (0.77-1.02)
[2017-10-01 01:13] VITALS: BP 148/59
[2017-10-01 01:17] LABS: EGFR Non-African American 102.2 (>60)
--- NOTE | 2017-10-01 01:33 | ED ---
Krishna Dorman Nilda, scribed for José Manuel Little MD on 09/30/17 at 2323 . Headache - HPI Summary HPI Summary: This patient is a 56 year old F presenting to [facility] with a chief complaint of constant severe headache s/p an episode of coughing hard at 2200. The patient rates the pain 8/10 in severity. Patient reports vomiting in ED today, but denies photophobia. Symptoms aggravated and alleviated by nothing. Pt states she was diagnosed and treated with Influenza B and has been coughing for weeks. PMHx includes tension headaches, allergy induced asthma. - History Of Current Complaint Chief Complaint: EDHeadache Stated Complaint: COUGH/HEADACHE Time Seen by Provider: 09/30/17 23:12 Hx Obtained From: Patient Hx Last Menstrual Period: 06/02/11 Onset/Duration: Sudden Onset, Started hours ago, Still Present Currently Pain Is: Current Pain Scale(0-10)= - 8 Timing: Constant Location of Headache: Diffuse Aggravating Factor: Nothing Allevating Factors: Nothing Associated Signs And Symptoms: Vomiting, Other (Noted In Comments) - cough; negative photophobia - Allergies/Home Medications Allergies/Adverse Reactions: Allergies Allergy/AdvReac Type Severity Reaction Status Date / Time Fluticasone [From Advair HFA] Allergy Anaphylatic Verified 09/30/17 22:55 Shock Salmeterol [From Advair HFA] Allergy Anaphylatic Verified 09/30/17 22:55 Shock Azithromycin [From Zithromax] AdvReac flank pain Verified 09/30/17 22:55 Ciprofloxacin AdvReac Headache Verified 09/30/17 22:55 PMH/Surg Hx/FS Hx/Imm Hx Sensory History: Denies: Hx Legally Blind Neurological History: Reports: Other Neuro Impairments/Disorders - Tension headache - Surgical History Surgery Procedure, Year, and Place: tubal ligation 2002 Infectious Disease History: No Infectious Disease History: Denies: Traveled Outside the [place] in Last 30 Days - Family History Known Family History: Positive: Hypertension, Diabetes - Social History Alcohol Use: None Substance Use Type: Reports: None Smoking Status (MU): Former Smoker Review of Systems Negative: Photophobia Positive: Cough Positive: Vomiting Positive: Headache All Other Systems Reviewed And Are Negative: Yes Physical Exam - Summary Physical Exam Summary: VITAL SIGNS: Reviewed. GENERAL: Patient is a well-developed and nourished female who is lying comfortable in the stretcher. Patient is not in any acute respiratory distress. HEAD AND FACE: No signs of trauma. No ecchymosis, hematomas or skull depressions. No sinus tenderness. EYES: PERRLA, EOMI x 2, No injected conjunctiva, no nystagmus. EARS: Hearing grossly intact. Ear canals and tympanic membranes are within normal limits. MOUTH: Oropharynx within normal limits. NECK: Supple, trachea is midline, no adenopathy, no JVD, no carotid bruit, no c- spine tenderness, neck with full ROM. CHEST: Symmetric, no tenderness at palpation LUNGS: Clear to auscultation bilaterally. No wheezing or crackles. CVS: Regular rate and rhythm, S1 and S2 present, no murmurs or gallops appreciated. ABDOMEN: Soft, non-tender. No signs of distention. No rebound no guarding, and no masses palpated. Bowel sounds are normal. EXTREMITIES: FROM in all major joints, no edema, no cyanosis or clubbing. NEURO: Alert and oriented x 3. No acute neurological deficits. Speech is normal and follows commands. SKIN: Dry and warm Triage Information Reviewed: Yes Vital Signs On Initial Exam: Initial Vitals Temp Pulse Resp BP Pulse Ox 97.6 F 88 16 162/88 96 09/30/17 22:45 09/30/17 22:45 09/30/17 22:45 09/30/17 22:45 09/30/17 22:45 Vital Signs Reviewed: Yes - Breanna Coma Scale Coma Scale Total: 15 Diagnostics - Vital Signs Vital Signs Temp Pulse Resp BP Pulse Ox 09/30/17 22:45 97.6 F 88 16 162/88 96 - Laboratory Result Diagrams: 09/30/17 23:58 09/30/17 23:58 Lab Statement: Any lab studies that have been ordered have been reviewed, and results considered in the medical decision making process. - CT Brain CT Interpretation Completed By: Radiologist - Normal Head. Dr. Little reviewed this report. Sinus CT Interpretation Completed By: Radiologist - Normal exam. Dr. Little reviewed this report. Headache Course/Dx - Course Assessment/Plan: Pt is a 56 y/o F with PMHx of COLEMAN, who comes in with COLEMAN. Exam and imaging are unremarkable. Pt feels better after treated with morphine, reglan, and benadryl. Pt will be D/C with Dx headache. - Diagnoses Provider Diagnoses: Headache Discharge - Discharge Plan Condition: Stable Disposition: HOME Patient Education Materials: Tension Headache (ED) Referrals: Gurdeep Morrison MD [Primary Care Provider] - 3 Days Additional Instructions: RETURN TO THE EMERGENCY DEPARTMENT FOR CHANGING OR WORSENING SYMPTOMS. The documentation as recorded by the Krishna walters Nilda accurately reflects the service I personally performed and the decisions made by Sidney sosa Abdul, MD.
--- NOTE | 2017-10-01 07:34 | RAD ---
HISTORY: Headache COMPARISONS: None TECHNIQUE: Multiple contiguous axial CT scans were obtained of the head without intravenous contrast. FINDINGS: HEMORRHAGE/INFARCT: There is no hemorrhage or acute infarct. MASSES/SHIFT: There is no mass or shift. EXTRA-AXIAL SPACES: There are no extra-axial fluid collections. SULCI AND VENTRICLES: The sulci and ventricles are normal in size and position for the patient's stated age. CEREBRUM: There are no focal parenchymal abnormalities. BRAINSTEM: There are no focal parenchymal abnormalities. CEREBELLUM: There are no focal parenchymal abnormalities. VESSELS: The vessels are grossly normal. PARANASAL SINUSES: The paranasal sinuses are clear. ORBITS: The orbits are unremarkable. BONES AND SOFT TISSUE: No bone or soft tissue abnormalities are noted. OTHER: None IMPRESSION: NO ACUTE INTRACRANIAL PATHOLOGY.
--- NOTE | 2017-10-01 07:36 | RAD ---
CLINICAL HISTORY: Headache, cough COMPARISON: None TECHNIQUE: Contiguous axial CT images were obtained through the paranasal sinuses, without intravenous contrast, with coronal and sagittal multiplanar reformations. FINDINGS: NASAL CAVITY: Septum: The nasal septum is deviated to the left with left-sided spurring. Right: Clear Left: Clear SINUSES AND DRAINAGE PATHWAYS: Frontal sinuses: Unremarkable. Maxillary sinuses: There is minimal mucoperiosteal thickening within the left maxillary sinus. Ethmoid sinuses: Unremarkable. Ostiomeatal complex: Patent without obstruction or occlusion. Sphenoid sinuses: Unremarkable. Anatomic variations: No significant variations. Orbits: Unremarkable. Anterior cranial fossa: Normal. Other findings: None. IMPRESSION: MINIMAL SINUS MUCOSAL INFLAMMATORY DISEASE, WITHOUT EROSION, OSTEITIS, OR AIR FLUID LEVEL.
== END 2017-10-01 01:14 | disposition home or self-care (01) ==
LOC: ED 22:45
DX: R51 Headache (principal); R11.10 Vomiting, unspecified; R05 Cough; Z87.891 Personal history of nicotine dependence
CPT/HCPCS: 36415; 70450; 70486; 80053; 85025; 85610; 85730; 96374; 96375; 99283; J1200; J2270; J2765

== ENCOUNTER 2019-03-01 09:53 | Emergency (ER) | payer BC ==
--- NOTE | 2019-03-01 10:23 | ED ---
HPI Chest Pain - HPI Summary HPI Summary: This patient is a 58 year old F presenting to ED with a chief complaint of intermittent left upper chest pain at 0300 this morning. Patient woke up to the chest pain, right jaw pain, and mid back pain that lasted about 10 minutes. After sitting up and laying back down the pain went away. This morning, patient woke up feeling dizzy while getting up to go to the bathroom. In the room, patient reports mild dizziness and lightheadedness but no pain. The patient rates the pain this morning 4/10 in severity. Symptoms aggravated by nothing. Symptoms alleviated by sitting up. Patient denies SOB, nausea, diaphoresis. PMHx of HLD, seasonal allergies. FHx of DM. HTN. PSHx of tubal ligation. Patient does not use alcohol or substances but is a former tobacco smoker. - History of Current Complaint Chief Complaint: EDChestPainROMI Time Seen by Provider: 03/01/19 10:13 Hx Obtained From: Patient Hx Last Menstrual Period: 06/02/11 Onset/Duration: Started Hours Ago - 0300, Resolved Time of Onset: 03:00 Timing: Intermittent, Lasting Minutes - 10 minutes Initial Severity: Moderate Current Severity: None Pain Intensity: 4 Pain Scale Used: 0-10 Numeric Chest Pain Location: Left Anterior Chest Pain Radiates: Yes Chest Pain Radiates To:: Back - Mid, Jaw - Right Aggravating Factor(s): Nothing Alleviating Factor(s): Upright Position Associated Signs and Symptoms: Positive: Chest Pain, Dizziness, Lightheadedness , Back Pain, Other: - Right jaw pain. Negative: Shortness of Breath, Diaphoresis, Nausea Related History: Seasonal Allergies - Allergy/Home Medications Allergies/Adverse Reactions: Allergies Allergy/AdvReac Type Severity Reaction Status Date / Time azithromycin Allergy Abdominal Verified 03/01/19 10:05 Pain ciprofloxacin Allergy Headache Verified 03/01/19 10:05 fluticasone Allergy Anaphylatic Verified 03/01/19 10:05 [From Advair Diskus] Shock salmeterol Allergy Anaphylatic Verified 03/01/19 10:05 [From Advair Diskus] Shock PMH/Surg Hx/FS Hx/Imm Hx Cardiovascular History: Reports: Hx Hypercholesterolemia Respiratory History: Reports: Hx Seasonal Allergies Sensory History: Denies: Hx Legally Blind Opthamlomology History: Denies: Hx Legally Blind Neurological History: Reports: Other Neuro Impairments/Disorders - Tension headache - Surgical History Surgery Procedure, Year, and Place: tubal ligation 2002 Infectious Disease History: No Infectious Disease History: Denies: Traveled Outside the [place] in Last 30 Days - Family History Known Family History: Positive: Hypertension, Diabetes - Social History Alcohol Use: None Hx Substance Use: No Substance Use Type: Reports: None Hx Tobacco Use: Yes Smoking Status (MU): Former Smoker Review of Systems Negative: Skin Diaphoresis Positive: Chest Pain - Left upper chest Negative: Shortness Of Breath Negative: Nausea Musculoskeletal: Other - Right jaw pain, mid back pain Neurological: Other - Dizzy, lightheaded All Other Systems Reviewed And Are Negative: Yes Physical Exam - Summary Physical Exam Summary: Appearance: The patient is well-nourished in no acute distress and in no acute pain. Skin: The skin is warm and dry and skin color reflects adequate perfusion. HEENT: The head is normocephalic and atraumatic. The pupils are equal and reactive. The conjunctivae are clear and without drainage. Nares are patent and without drainage. Mouth reveals moist mucous membranes and the throat is without erythema and exudate. The external ears are intact. The ear canals are patent and without drainage. The tympanic membranes are intact. Neck: The neck is supple with full range of motion and non-tender. There are no carotid bruits. There is no neck vein distension. Respiratory: Chest is non-tender. Lungs are clear to auscultation and breath sounds are symmetrical and equal. Cardiovascular: Heart is regular rate and rhythm. There is no murmur or rub auscultated. There is no peripheral edema and pulses are symmetrical and equal. Abdomen: The abdomen is soft and non-tender. There are normal bowel sounds heard in all four quadrants and there is no organomegaly palpated. Musculoskeletal: There is no back tenderness noted. Extremities are non-tender with full range of motion. There is good capillary refill. There is no peripheral edema or calf tenderness elicited. Neurological: Patient is alert and oriented to person, place and time. The patient has symmetrical motor strength in all four extremities. Cranial nerves are grossly intact. Deep tendon reflexes are symmetrical and equal in all four extremities. Psychiatric: The patient has an appropriate affect and does not exhibit any anxiety or depression. Triage Information Reviewed: Yes Vital Signs On Initial Exam: Initial Vitals Temp Pulse Resp BP Pulse Ox 97.6 F 73 16 160/83 96 03/01/19 09:54 03/01/19 09:54 03/01/19 09:54 03/01/19 09:54 03/01/19 09:54 Vital Signs Reviewed: Yes Diagnostics - Vital Signs Vital Signs Temp Pulse Resp BP Pulse Ox 03/01/19 09:54 97.6 F 73 16 160/83 96 - Laboratory Result Diagrams: 03/01/19 10:41 03/01/19 10:41 Lab Statement: Any lab studies that have been ordered have been reviewed, and results considered in the medical decision making process. - Radiology CXR Radiology Interpretation Completed By: Radiologist Summary of Radiographic Findings: No active cardiopulmonary disease. Dr. Barroso has reviewed this radiology report. - EKG 1001 Cardiac Rate: NL - 68 BPM EKG Rhythm: Sinus Rhythm ST Segment: Normal Summary of EKG Findings: Normal sinus rhythm at 68 BPM, normal ST, no ectopy, no STEMI Re-Evaluation - Re-Evaluation First Eval Re-Evaluation Time: 14:35 Comment: Discussed troponin results with patient. Patient will be discharged home with dx of chest pain. Pt understands and agrees with this plan. Chest Pain Course/Dx - Course Course Of Treatment: Ms. Ghosh was kept on the monitor here where she was noted to be in a sinus rhythm. Her EKG showed no acute ischemic changes. She was nontoxic in appearance with stable vitals. Labs including a d-dimer and delayed troponin were normal as was chest x-ray. I'm not sure what the etiology of her chest pain was last night although it sounds like it could've been some reflux I reassured her and recommended she follow up with her PCP. - Diagnoses Provider Diagnoses: Chest pain Discharge - Sign-Out/Discharge Documenting (check all that apply): Patient Departure - Discharge Patient Received Moderate/Deep Sedation with Procedure: No - Discharge Plan Condition: Stable Disposition: HOME Patient Education Materials: Chest Pain (ED) Referrals: Gurdeep Morrison MD [Primary Care Provider] - 3 Days Additional Instructions: Follow up with your primary care provider in 2-3 days. RETURN TO THE ER FOR WORSENING OR CHANGING SYMPTOMS. - Billing Disposition and Condition Condition: STABLE Disposition: Home - Attestation Statements Document Initiated by Scribe: Yes Documenting Scribe: Bobby Ramesh Provider For Whom Scribe is Documenting (Include Credential): Ollie Barroso MD Scribe Attestation: I, Bobyb Ramesh, scribed for Ollie Barroso MD on 03/01/19 at 1447. Scribe Documentation Reviewed: Yes Provider Attestation: The documentation as recorded by the scribe, Bobby Ramesh accurately reflects the service I personally performed and the decisions made by me, Ollie Barroso MD Status of Scribe Document: Viewed
[2019-03-01 10:51] LABS: ABS Eosinophils 0.3 10^3/ul (0-0.6); ABS Lymphocytes 1.2 10^3/ul (1.0-4.8); ABS Monocytes 0.5 10^3/ul (0-0.8); ABS Neutrophils 3.8 10^3/ul (1.5-7.7); Eosinophil % 4.9 %; Hematocrit 41 % (35-47); Hemoglobin 13.6 g/dL (12.0-16.0); Lymphocyte % 20.7 %; Mean Corpuscular HGB Conc 33 g/dL (31-36); Mean Corpuscular Hemoglobin 29 pg (27-31); Mean Corpuscular Volume 88 fL (80-97); Mean Platelet Volume 9.1 fL (7.4-10.4); Nucleated Red Blood Cells % 0.1; Platelet Count 261 10^3/uL (150-450); Red Blood Count 4.64 10^6 /uL (3.70-4.87); Red Cell Distribution Width 14 % (10-15); White Blood Count 5.9 10^3/uL (3.5-10.8)
[2019-03-01 11:07] LABS: Albumin 4.3 g/dL (3.2-5.2); Albumin/Globulin Ratio 1.3 (1-3); BUN/Creatinine Ratio 16.4 (8-20); Calcium 9.7 mg/dL (8.6-10.3); EGFR African American 99.8 (>60); EGFR Non-African American 82.5 (>60); Globulin 3.4 g/dL (2-4); Potassium 4.1 mmol/L (3.5-5.0); Total Bilirubin 0.4 mg/dL (0.2-1.0); Total Protein 7.7 g/dL (6.4-8.9)
[2019-03-01 14:53] VITALS: BP 134/87
== END 2019-03-01 15:03 | disposition home or self-care (01) ==
LOC: ED 09:53
DX: R07.89 Other chest pain (principal); R68.84 Jaw pain; M54.6 Pain in thoracic spine; R42 Dizziness and giddiness; Z88.1 Allergy status to other antibiotic agents; Z88.8 Allergy status to other drugs, medicaments and biological substances; Z87.891 Personal history of nicotine dependence
CPT/HCPCS: 36415; 71046; 80053; 83605; 84484; 85025; 85379; 93005; 99283